=== PATIENT | female | born 2005 | race Hispanic/Latino ===

== ENCOUNTER 2024-10-23 12:08 | Emergency (ER) | payer BC ==
[2024-10-23 12:59] LABS: #Basophils 0.04 10x3/uL (0.0-0.2); #Eosinophils 0.29 10x3/uL (0.0-0.5); #Monocytes 0.61 10x3/uL (0.0-1.1); #Neutrophils 5.81 10x3/uL (1.5-8.4); %Basophils 0.5 % (0.0-2.0); %Eosinophils 3.3 % (0.0-6.0); %Lymphocytes 23.6 % (18.0-47.0); %Monocytes 6.9 % (0.0-10.0); %Neutrophils 65.4 % (40.0-75.0); Hemoglobin 12.6 g/dL (12.0-15.5); Mean Corpuscular HGB CONC 32.3 g/dL (32.0-36.0); Mean Corpuscular Hemoglobin 26.4 pg (27.0-33.0); Mean Corpuscular Volume 81.8 fL (81.6-98.3); Mean Platelet Volume 10.8 fL (7.4-10.4); Platelet Count 301 10x3/uL (150-450); RBC Distribution Width 13.1 % (11.5-14.5); Red Blood Cell (RBC) Count 4.77 10x6/uL (3.90-5.03); White Blood Cell (WBC) Count 8.87 10x3/uL (3.5-10.5)
[2024-10-23 13:11] LABS: Bilirubin Neg (Negative); Blood, Urine Negative (Negative); Clarity Clear (Clear); Glucose, Urine (Dipstick) Normal (Negative); Ketone, Urine 50 mg/dL (Negative); Leukocyte Negative (Negative); Nitrite Negative (Negative); Protein, Urine (Dipstick) 15 mg/dl (Neg-Trace); Specific Gravity, Urine 1.025 (1.005-1.030)
[2024-10-23] MEDS ORDERED: Ondansetron ODT 4 MG TAB ONE (13:16)
[2024-10-23 13:19] LABS: ALT (SGPT) 24 U/L (Less than 34); AST (SGOT) 21 U/L (11-34); Albumin 3.6 g/dL (3.1-4.5); Alkaline Phosphatase 54 U/L (40-110); Anion Gap 12 mmol/L (10-20); BUN (Urea Nitrogen) 7 mg/dL (7.0-18.7); Bilirubin, Total 0.2 mg/dL (0.3-1.2); Calc. Creatinine Clearance 0 mL/min (70-130); Calcium 9.5 mg/dL (7.8-10.44); Carbon Dioxide 22 mmol/L (22-29); Chloride 106 mmol/L (98-107); Estimated GFR 133; Globulin 3.7 g/dL (2.4-3.5); Glucose 78 mg/dL (70-105); Lipase 17 U/L (8-78); Potassium 3.8 mmol/L (3.5-5.1); Protein, Total 7.3 g/dL (6.0-8.3); Sodium 136 mmol/L (136-145)
[2024-10-23 13:25] LABS: Bacteria/HPF 1+ HPF (None Seen); CAUTI Indications for Culture Pregnancy; Mucous/LPF 1+ LPF (<2+); RBC/HPF 0-3 HPF (0-3); WBC/HPF 0-3 HPF (0-3)
[2024-10-23 13:26] LABS: Urine Culture Reflex Yes Yes
== END 2024-10-23 15:00 | disposition home or self-care (01) ==
LOC: CSHERS 12:08
DX: O21.9 Vomiting of pregnancy, unspecified (principal); Z3A.12 12 weeks gestation of pregnancy
CPT/HCPCS: 36415; 80053; 81001; 83690; 83735; 85025; 87086; Q0162

== ENCOUNTER 2025-05-06 19:28 | Day surgery (SDC) | payer BC ==
[2025-05-06 20:27] VITALS: BMI 36.4
[2025-05-06 21:05] LABS: Fetal Membranes Rupture No Membranes Rupture (No Rupture)
[2025-05-06] MEDS ORDERED: hydrALAZINE 20 MG/ML VIAL SLOW IVP PRN (23:04)
== END 2025-05-06 23:40 | disposition home or self-care (01) ==
LOC: CJX 19:28 → CSHLD/OP 23:40
PROVIDERS: ATTEND Family Medicine
DX: O47.1 False labor at or after 37 completed weeks of gestation (principal); Z03.71 Encounter for suspected problem with amniotic cavity and membrane ruled out; Z3A.40 40 weeks gestation of pregnancy; Z79.899 Other long term (current) drug therapy
CPT/HCPCS: 84112; 99284

== ENCOUNTER 2025-05-07 18:18 | Day surgery (SDC) | payer BC ==
[2025-05-07 18:58] VITALS: BMI 36.4
[2025-05-07] MEDS ORDERED: hydrALAZINE 20 MG/ML VIAL SLOW IVP PRN (21:03)
[2025-05-07] MEDS ORDERED: Meperidine HCl/PF 25 MG (1 mL) VIAL IM SCH (21:15)
[2025-05-07] MEDS: Meperidine HCl/PF 25 MG (1 mL) VIAL ONE (21:20)
== END 2025-05-07 21:25 | disposition home or self-care (01) ==
LOC: CSHLD/OP 18:18
PROVIDERS: ATTEND Family Medicine
DX: O47.1 False labor at or after 37 completed weeks of gestation (principal); Z3A.40 40 weeks gestation of pregnancy; Z79.899 Other long term (current) drug therapy
CPT/HCPCS: 96372; 99283; J2175; J2550

== ENCOUNTER 2025-05-08 02:27 | Day surgery (SDC) | payer BC ==
[2025-05-08 02:46] VITALS: BMI 36.4
[2025-05-08] MEDS ORDERED: hydrALAZINE 20 MG/ML VIAL SLOW IVP PRN (02:56)
[2025-05-08] MEDS ORDERED: Meperidine HCl/PF 25 MG (1 mL) VIAL IM SCH (03:15)
[2025-05-08] MEDS ORDERED: Morphine IR 10 MG/5 ML UDCUP PO PRN (03:21)
[2025-05-08 03:25] LABS: Fetal Membranes Rupture No Membranes Rupture (No Rupture)
== END 2025-05-08 05:08 | disposition home or self-care (01) ==
LOC: CSHLD/OP 02:27
PROVIDERS: ATTEND Family Medicine
DX: O47.1 False labor at or after 37 completed weeks of gestation (principal); O48.0 Post-term pregnancy; Z3A.40 40 weeks gestation of pregnancy
CPT/HCPCS: 84112; 99283; J0595

== ENCOUNTER 2025-05-08 11:24 | Inpatient (IN) | payer BC ==
[~2025-05-08 11:24] MED LIST: Bupivacaine 0.25% HCL 30 ML VIAL ONE; Bupivacaine HCl 0.5%/Epinephrine 1:200,000/PF 30 ml Vial ONE
[2025-05-08 12:00] VITALS: BMI 36.4
[2025-05-08 12:24] LABS: Fetal Membranes Rupture RUPTURE DETECTED (No Rupture)
[2025-05-08] MEDS ORDERED: hydrALAZINE 20 MG/ML VIAL SLOW IVP PRN (12:51)
[2025-05-08] MEDS ORDERED: Penicillin G Potassium 5 MILL.UNITS in Sodium Chloride 0.9% 100 ML IVPB SCH (12:51)
[2025-05-08] MEDS ORDERED: Methylergonovine 0.2 MG/ML VIAL IM PRN (12:51)
[2025-05-08] MEDS ORDERED: Ondansetron PF 4 MG/2 ML Vial IVP PRN ×2 (12:51→14:38)
[2025-05-08] MEDS ORDERED: HYDROcodone/Acetaminophen 5/325 mg Tablet PO PRN (12:51)
[2025-05-08] MEDS ORDERED: Oxytocin 30 units/NS 500 ML 500 ML IV SCH ×2 (12:51)
[2025-05-08] MEDS ORDERED: Lidocaine 1% (PF) 30 ML VIAL SC PRN (12:51)
[2025-05-08] MEDS ORDERED: Diphenoxylate HCl/Atropine Tablet PO PRN (12:51)
[2025-05-08] MEDS ORDERED: Carboprost 250 MCG/ML AMP IM PRN (12:51)
[2025-05-08] MEDS ORDERED: Tranexamic Acid 1,000 MG/10 ML VIAL IVP PRN (12:51)
[2025-05-08 13:10] LABS: Hematocrit 35.7 % (34.9-44.5); Hemoglobin 11.1 g/dL (12.0-15.5); Mean Corpuscular Hemoglobin 24.1 pg (27.0-33.0); Mean Corpuscular Volume 77.4 fL (81.6-98.3); Platelet Count 312 10x3/uL (150-450); Red Blood Cell (RBC) Count 4.61 10x6/uL (3.90-5.03); White Blood Cell (WBC) Count 15.39 10x3/uL (3.5-10.5)
[2025-05-08] MEDS: fentaNYL/Ropivacaine Epidural 100 ML ONE (13:35)
[2025-05-08 13:39] LABS: Syphilis Antibody Index 0.04 S/CO (<1.00 Non-Reactive)
[2025-05-08 13:41] LABS: Hep B Surf Ag - L&D Non-Reactive S/CO (NonReactive)
[2025-05-08] MEDS: Oxytocin 30 units/NS 500 ML 500 ML IV SCH (14:15)
[2025-05-08] MEDS ORDERED: diphenhydrAMINE 50 MG/ML VIAL IVP PRN (14:38)
[2025-05-08] MEDS ORDERED: Acetaminophen 325 MG TAB PO PRN (14:38)
[2025-05-08] MEDS ORDERED: Communication Order-Pharmacy FS SCH (14:45)
[2025-05-08] MEDS ORDERED: fentaNYL 2 mcg/Ropivacaine 0.2% Epidural 100 ML CADD EPIDURAL SCH (14:45)
[2025-05-08] MEDS ORDERED: Penicillin G 2.5 MILL.units 2.5 MILL.UNITS in Premix 1 BAG IVPB SCH (17:00)
[2025-05-08] MEDS: Acetaminophen 500 MG TAB PO PRN (21:10)
[2025-05-08] MEDS: Ibuprofen 800 MG TAB PO PRN (21:10)
[2025-05-09] MEDS ORDERED: Preparation H Ointment 28 GM TUBE PR PRN (00:16)
[2025-05-09] MEDS ORDERED: hydrALAZINE 20 MG/ML VIAL SLOW IVP PRN (00:16)
[2025-05-09] MEDS ORDERED: Bisacodyl 10 MG SUPP PR PRN (00:16)
[2025-05-09] MEDS ORDERED: Ondansetron PF 4 MG/2 ML Vial IVP PRN (00:16)
[2025-05-09] MEDS ORDERED: Milk Of Magnesia 30 ML UDCUP PO PRN (00:16)
[2025-05-09] MEDS ORDERED: diphenhydrAMINE 25 MG CAP PO PRN (00:16)
[2025-05-09] MEDS ORDERED: HYDROcodone/Acetaminophen 5/325 mg Tablet PO PRN (00:16)
[2025-05-09] MEDS: Ibuprofen 800 MG TAB PO SCH (05:36)
[2025-05-09] MEDS: Ferrous Sulfate 325 MG TAB PO SCH (08:27)
[2025-05-09] MEDS: Benzocaine-Menthol 82.5 ML CAN TOP PRN (08:30)
[2025-05-09] MEDS: Hepatitis B Vaccine 10 MCG/0.5 ML SYR ONE (08:40)
[2025-05-09] MEDS: Erythromycin Base 0.5% Oint 1 GM TUBE ONE (08:40)
[2025-05-09] MEDS: Boostrix 0.5 ML (Tdap) VIAL (>/=7 yrs of age) IM ONE (08:42)
[2025-05-10 19:58] VITALS: BP 113/75; TEMP 98.1
== END 2025-05-10 20:15 | disposition home or self-care (01) | DRG 807 ==
LOC: CSHLD/OP 11:24 → CSHLD 12:44 → CSHPED 23:55
PROVIDERS: ADMIT Family Medicine; ATTEND Family Medicine
PROC: 10E0XZZ Delivery of Products of Conception, External Approach (ICD-10-PCS; principal; 2025-05-08)
PROC: 0UQGXZZ Repair Vagina, External Approach (ICD-10-PCS; 2025-05-08)
DX: O48.0 Post-term pregnancy (principal); Z37.0 Single live birth; O70.0 First degree perineal laceration during delivery; Z3A.40 40 weeks gestation of pregnancy; Z79.899 Other long term (current) drug therapy; Z79.82 Long term (current) use of aspirin
CPT/HCPCS: 36415; 51702; 84112; 85027; 86780; 86850; 86900; 86901; 87340; 99283; 99285; J0595; J0665; J2590; J7120